=== PATIENT | female | born 1965 | race Caucasian/White ===

== ENCOUNTER 2019-11-12 12:59 | Emergency (ER) | payer MEDICARE, OTHER ==
[~2019-11-12] VITALS: Ht 162.6 cm; Wt 63.5 kg
[~2019-11-12 12:59] MED LIST: CARI350T PO; DESV100T PO; HYDR-3974 PO; LAMO200T2 PO; LITH300T PO; OXYB5TAB16 PO; PROM50TA5 PO; TRAZ-214 PO; VALA500T PO
--- NOTE | 2019-11-12 13:36 | NUR ---
MOER ANXIOUS THAN USUAL - CAME TO ER FOR EVALUATION AND TREATMENT
[2019-11-12] MEDS ORDERED: DIAZEPAM 10 MG TABLET PO ONE (14:00)
[2019-11-12] MEDS ORDERED: DIAZEPAM 5 MG TABLET ONE (14:00)
[2019-11-12 14:23] VITALS: BP 118/74
--- NOTE | 2019-11-12 14:23 | NUR ---
Patient discharged to home in stable condition. Written and verbal after care instructions given. Patient verbalizes understanding of instruction.
== END 2019-11-12 14:23 | disposition home or self-care (01) ==
LOC: ER 13:03
DX: F41.0 Panic disorder [episodic paroxysmal anxiety] (principal); Z76.0 Encounter for issue of repeat prescription; F32.9 Major depressive disorder, single episode, unspecified; G89.29 Other chronic pain; Z98.890 Other specified postprocedural states; Z79.899 Other long term (current) drug therapy

== ENCOUNTER 2025-02-03 00:14 | Emergency (ER) | payer BC, MEDICARE ==
[~2025-02-03] VITALS: Ht 162.6 cm; Wt 59.0 kg
[~2025-02-03 00:14] MED LIST changes: -TRAZ-214 PO; +TRAZ-257 PO
[2025-02-03 01:21] VITALS: BP 110/77; TEMP 98.2; O2SAT 95
== END 2025-02-03 01:21 | disposition home or self-care (01) ==
LOC: ER 00:16
DX: F41.9 Anxiety disorder, unspecified (principal); F41.0 Panic disorder [episodic paroxysmal anxiety]; F31.9 Bipolar disorder, unspecified; M19.90 Unspecified osteoarthritis, unspecified site; Z79.624 Long term (current) use of inhibitors of nucleotide synthesis; Z79.899 Other long term (current) drug therapy